=== PATIENT | male | born 1980 | race African-American/Black ===

== ENCOUNTER 2021-08-23 17:19 | Emergency (ER) | payer OTHER ==
[~2021-08-23] VITALS: Ht 180.3 cm; Wt 96.6 kg
[2021-08-23] MEDS ORDERED: SIMVASTATIN20 MG PO (18:13)
[2021-08-23] MEDS ORDERED: IBUPROFEN 600 MG TAB PO STA (18:31)
[2021-08-23] MEDS ORDERED: IBUPROFEN 600 MG TAB ONE (19:03)
[2021-08-23] MEDS ORDERED: ZITHROMAX250 MG PO (20:48)
[2021-08-23] MEDS ORDERED: DEXAMETHASONE6 MG PO (20:49)
[2021-08-23] MEDS ORDERED: GUAIFEN-CODEINE10 ML PO (20:50)
== END 2021-08-23 22:01 | disposition home or self-care (01) ==
LOC: FSED 18:20
DX: U07.1 COVID-19 (principal); R09.1 Pleurisy; R05.9 Cough, unspecified; E78.5 Hyperlipidemia, unspecified
CPT/HCPCS: 71046; 71250; 87400; 99283; U0002